=== PATIENT | female | born 1985 | race Two or more races ===

== ENCOUNTER 2019-08-28 11:46 | Inpatient (IN) | payer OTHER ==
[~2019-08-28] VITALS: Ht 160 cm; Wt 79.4 kg
[2019-09-18] MEDS ORDERED: PRENATAL + DHA1 EAC1 PO (12:59)
[2019-09-18] MEDS ORDERED: TIROSINT50 MCG PO (13:00)
== END 2019-09-21 13:21 | disposition home or self-care (01) | DRG 807 ==
LOC: OB/GYN 09-10 13:15 → LDR 09-18 12:03 → OB/GYN 09-19 18:38
PROVIDERS: ADMIT Obstetrics & Gynecology Maternal & Fetal Medicine
PROC: 10E0XZZ Delivery of Products of Conception, External Approach (ICD-10-PCS; principal; 2019-09-19)
PROC: 0W8NXZZ Division of Female Perineum, External Approach (ICD-10-PCS; 2019-09-19)
PROC: 0WQNXZZ Repair Female Perineum, External Approach (ICD-10-PCS; 2019-09-19)
PROC: 4A1HXFZ Monitoring of Products of Conception, Cardiac Rhythm, External Approach (ICD-10-PCS; 2019-09-19)
PROC: 3E033VJ Introduction of Other Hormone into Peripheral Vein, Percutaneous Approach (ICD-10-PCS; 2019-09-19)
DX: O41.03X0 Oligohydramnios, third trimester, not applicable or unspecified (principal); Z37.0 Single live birth; Z3A.38 38 weeks gestation of pregnancy

== ENCOUNTER 2019-09-18 10:53 | Outpatient (CLI) | payer OTHER ==
[2019-09-18] MEDS ORDERED: PRENATAL + DHA1 EAC1 PO (12:59)
[2019-09-18] MEDS ORDERED: TIROSINT50 MCG PO (13:00)
== END 2019-09-18 13:12 | disposition still patient (30) ==
LOC: NST 10:53
DX: Z34.83 Encounter for supervision of other normal pregnancy, third trimester (principal)

== ENCOUNTER 2020-11-06 15:00 | Inpatient (IN) | payer OTHER ==
[~2020-11-06] VITALS: Ht 160 cm; Wt 81.6 kg
[~2020-11-06 15:00] MED LIST: PRENATAL + DHA1 EAC1 PO; TIROSINT50 MCG PO
== END 2020-12-05 12:20 | disposition home or self-care (01) | DRG 807 ==
LOC: LDR 12-03 05:50 → SURG-SUITE 12-03 16:26 → OB/GYN 12-05 15:00
PROVIDERS: ADMIT Obstetrics & Gynecology Maternal & Fetal Medicine; ATTEND Obstetrics & Gynecology Maternal & Fetal Medicine
PROC: 10E0XZZ Delivery of Products of Conception, External Approach (ICD-10-PCS; principal; 2020-12-03)
PROC: 0W8NXZZ Division of Female Perineum, External Approach (ICD-10-PCS; 2020-12-03)
PROC: 4A1 Measurement and Monitoring, Physiological Systems, Monitoring (ICD-10-PCS; 2020-12-03)
DX: O80 Encounter for full-term uncomplicated delivery (principal); Z37.0 Single live birth; Z3A.39 39 weeks gestation of pregnancy; Z20.822 Contact with and (suspected) exposure to COVID-19

== ENCOUNTER 2020-11-27 09:57 | Outpatient (CLI) | payer OTHER | END 2020-11-27 10:46 | disposition home or self-care (01) | LOC: NST 09:57 | PROVIDERS: ATTEND Obstetrics & Gynecology Maternal & Fetal Medicine | DX: Z34.83 Encounter for supervision of other normal pregnancy, third trimester (principal) ==

== ENCOUNTER 2020-12-01 10:49 | Outpatient (CLI) | payer OTHER | END 2020-12-01 11:31 | disposition home or self-care (01) | LOC: NST 10:49 | PROVIDERS: ATTEND Obstetrics & Gynecology Maternal & Fetal Medicine | DX: Z34.83 Encounter for supervision of other normal pregnancy, third trimester (principal) ==